=== PATIENT | male | born 1965 | race Caucasian/White ===

== ENCOUNTER 2019-05-16 19:43 | Emergency (ER) | payer OTHER ==
[2019-05-16 19:56] VITALS: BP 138/91; PULSE 88; RESP 18; TEMP 98.2
--- NOTE | 2019-05-16 20:48 | ED ---
Lower Extremity Injury HPI - General Chief Complaint: Extremity Injury, Lower Stated Complaint: Leg injury Time Seen by Provider: 05/16/19 20:08 Source: patient, RN notes reviewed, old records reviewed Mode of arrival: ambulatory Limitations: no limitations - History of Present Illness Initial Comments: This is a 53-year-old male presents emergency department today with strain over his left posterior thigh. Patient reports he was at work and felt a pop in his leg. Patient states that he has some cramping pain. He has not had any Motrin. - Related Data Home Medications Medication Instructions Recorded Confirmed Glimepiride [Amaryl] 4 mg PO BID 03/28/16 05/12/16 Levothyroxine Sodium [Unithroid] 150 mcg PO DAILY 03/28/16 05/12/16 Lisinopril [Zestril] 10 mg PO DAILY 03/28/16 05/12/16 Pioglitazone [Actos] 45 mg PO DAILY 03/28/16 05/12/16 metFORMIN HCL [metFORMIN HCL ER] 1,000 mg PO BID 03/28/16 05/12/16 traMADol HCL [Ultram] 50 mg PO Q6HR PRN 05/05/16 05/12/16 Previous Rx's Medication Instructions Recorded Ibuprofen [Motrin] 600 mg PO Q6HR PRN #40 day 03/28/16 Cephalexin [Keflex] 500 mg PO Q8HR #15 cap 05/12/16 HYDROcodone/APAP 5-325MG [[place] 1 - 2 each PO Q4-6H PRN #60 tab 05/12/16 5-325] Metoprolol Tartrate [Lopressor] 12.5 mg PO BID #60 tab 05/12/16 Sennosides-Docusate Sodium 2 tab PO DAILY #30 tablet 05/12/16 [Senokot-S] Allergies Allergy/AdvReac Type Severity Reaction Status Date / Time No Known Allergies Allergy Verified 05/16/19 19:56 Review of Systems ROS Statement: Those systems with pertinent positive or pertinent negative responses have been documented in the HPI. ROS Other: All systems not noted in ROS Statement are negative. Past Medical History Past Medical History: Diabetes Mellitus, Hypertension, Thyroid Disorder Additional Past Medical History / Comment(s): NIDDM type II, inactive thyroid. History of Any Multi-Drug Resistant Organisms: None Reported Past Surgical History: No Surgical Hx Reported, Orthopedic Surgery Additional Past Surgical History / Comment(s): 05/11/16 R rotator cuff repair. Other surgical hx: WISDOM TEETH EXTRACTION Past Anesthesia/Blood Transfusion Reactions: No Reported Reaction Past Psychological History: No Psychological Hx Reported Smoking Status: Never smoker Past Alcohol Use History: Rare Past Drug Use History: None Reported - Past Family History Mother Family Medical History: Cancer Additional Family Medical History / Comment(s): Mother at the age of 77yrs of some type of cancer. Father Family Medical History: No Reported History General Exam - General Exam Comments Initial Comments: Pleasant 33-year-old male. No distress. Limitations: no limitations General appearance: alert, in no apparent distress Head exam: Present: atraumatic, normocephalic, normal inspection Eye exam: Present: normal appearance, PERRL, EOMI. Absent: scleral icterus, conjunctival injection, periorbital swelling ENT exam: Present: normal exam, mucous membranes moist Neck exam: Present: normal inspection. Absent: tenderness, meningismus, lymphadenopathy Respiratory exam: Present: normal lung sounds bilaterally. Absent: respiratory distress, wheezes, rales, rhonchi, stridor Cardiovascular Exam: Present: regular rate, normal rhythm, normal heart sounds. Absent: systolic murmur, diastolic murmur, rubs, gallop, clicks GI/Abdominal exam: Present: soft, normal bowel sounds. Absent: distended, tenderness, guarding, rebound, rigid Extremities exam: Present: normal inspection, full ROM, normal capillary refill, other (Chest tenderness over the left posterior calf. Full range of motion noted. No palpable cord. No swelling or erythema.). Absent: tenderness, pedal edema, joint swelling, calf tenderness Back exam: Present: normal inspection Neurological exam: Present: alert, oriented X3, CN II-XII intact Psychiatric exam: Present: normal affect, normal mood Skin exam: Present: warm, dry, intact, normal color. Absent: rash Course Vital Signs 05/16/19 19:54 Temperature 98.2 F Pulse Rate 88 Respiratory 18 Rate Blood Pressure 138/91 O2 Sat by Pulse 98 Oximetry Medical Decision Making - Medical Decision Making Patient's a 53-year-old presented today for a left hamstring strain at work. Was moving material felt to stretched and pull in his left posterior thigh. This time he has no sign of tendon attachment full range of motion of the knee and leg noted. He has no other symptoms at this time. Patient was advised to take anti-inflammatory medication and ice the back of the leg. Discussed he can follow-up with [facility] over his [facility] Dr. symptoms continue to persist. Discussed could be. Reports muscles completely healed. Patient is agreeable to treatment plan will comply. Return parameters were discussed. Disposition Clinical Impression: Muscle strain, lower leg Disposition: HOME SELF-CARE Condition: Good Instructions (If sedation given, give patient instructions): Muscle Cramp (ED) Additional Instructions: Patient advised to follow-up with your primary care physician Nabor Pizano, stretch the leg before doing any activity. Patient can ice the leg from off-and-on for the next few days. Is patient prescribed a controlled substance at d/c from ED?: No Referrals: None,Stated [Primary Care Provider] - 1-2 days Time of Disposition: 20:48
[2019-05-16] MEDS ORDERED: IBUPROFEN 600 MG STARTER PACK 4 TAB BTL PO STA (20:50)
== END 2019-05-16 21:10 | disposition home or self-care (01) ==
LOC: EC 19:43
DX: S86.912A Strain of unspecified muscle(s) and tendon(s) at lower leg level, left leg, initial encounter (principal); E11.9 Type 2 diabetes mellitus without complications; I10 Essential (primary) hypertension; E07.89 Other specified disorders of thyroid; Z79.84 Long term (current) use of oral hypoglycemic drugs; Z79.890 Hormone replacement therapy; Z79.899 Other long term (current) drug therapy; X50.1XXA Overexertion from prolonged static or awkward postures, initial encounter; Y93.89 Activity, other specified; Y92.69 Other specified industrial and construction area as the place of occurrence of the external cause; Y99.0 Civilian activity done for income or pay
CPT/HCPCS: 99283

== ENCOUNTER → 2022-03-17 | Outpatient (CLI) | payer OTHER ==
--- NOTE | 2022-03-17 17:25 | XR ---
EXAMINATION TYPE: XR shoulder complete LT DATE OF EXAM: 03/17/2022 COMPARISON: NONE HISTORY: Pain TECHNIQUE: Shoulder examined in 3 projections FINDINGS: The humeral head articulates with the glenoid. The acromio-clavicular junction is normal. No acute fractures or dislocations are evident. A follow up study can be performed 7-10 days from acute trauma for continued pain. IMPRESSION: 1. No acute osseous abnormality left shoulder.
== END | disposition home or self-care (01) ==
LOC: RADXRMAIN 16:53
PROVIDERS: ATTEND Emergency Medicine
DX: S49.92XA Unspecified injury of left shoulder and upper arm, initial encounter (principal); M25.512 Pain in left shoulder

== ENCOUNTER → 2022-04-16 | Outpatient (CLI) | payer OTHER ==
--- NOTE | 2022-04-17 02:27 | MR ---
EXAMINATION TYPE: MR shoulder LT wo con DATE OF EXAM: 04/16/2022 COMPARISON: None HISTORY: Left shoulder pain and limited movement for 6 months. Multiplanar multi echo imaging of the left shoulder without contrast. The biceps tendon is intact. Subscapularis tendon is intact. Glenoid thomas appear normal. There is minor spurring at the AC joint and minimal subacromial impingement. The supraspinatus tendon is intact. No evidence of any significant shoulder joint effusion. The infraspinatus tendon is intac t. No evidence of a fracture. Glenoid appears normal. IMPRESSION: No evidence of rotator cuff tear. There is mild spurring at the AC joint with minimal subacromial imp ingement.
== END | disposition home or self-care (01) ==
LOC: RADMRIMAIN 18:45
PROVIDERS: ATTEND Orthopaedic Surgery
DX: M19.012 Primary osteoarthritis, left shoulder (principal)

== ENCOUNTER → 2022-07-14 | Outpatient (CLI) | payer SELFPAY ==
[2022-07-14 23:51] LABS: Basophils # (A) 0.07 X 10*3/uL (0.00-0.10); Basophils % (A) 0.9 %; Eosinophils # (A) 0.58 X 10*3/uL (0.04-0.35); Eosinophils % (A) 7.1 %; HCT 42.2 % (39.6-50.0); HGB 14.2 g/dL (13.0-17.0); Immature Grans, Automated 0.4 %; Lymphocytes # (A) 1.73 X 10*3/uL (0.90-5.00); Lymphocytes % (A) 21.2 %; MCH 32.6 pg (27.0-32.0); MCHC 33.6 g/dL (32.0-37.0); MCV 96.8 fL (80.0-97.0); Mean Platelet Volume 11.7 fL (9.5-12.2); Monocytes # (A) 0.67 X 10*3/uL (0.20-1.00); Monocytes % (A) 8.2 %; NRBC Per 100 WBC 0 /100 WBCS (0.0-0.0); Neutrophils # (A) 5.08 X 10*3/uL (1.80-7.70); Neutrophils % (A) 62.2 %; Platelet Count 231 X 10*3/uL (140-440); RBC 4.36 X 10*6/uL (4.40-5.60); RDW 12.6 % (11.5-14.5); WBC 8.16 X 10*3/uL (4.50-10.00)
[2022-07-15 00:06] LABS: African American GFR (CKD) 114.1 (60.0-200.0); Anion Gap 12.4 mmol/L (10.00-18.00); BUN/Creat Ratio 21.13 Ratio (12.00-20.00); Blood Urea Nitrogen 16.9 mg/dL (9.0-27.0); Carbon Dioxide 25.6 mmol/L (20.0-27.5); Non-African American GFR(CKD) 98.5 (60.0-200.0); Potassium 4.9 mmol/L (3.5-5.5)
== END | disposition home or self-care (01) ==
LOC: LABPAT 15:55
PROVIDERS: ATTEND Orthopaedic Surgery
DX: Z01.812 Encounter for preprocedural laboratory examination (principal); M75.42 Impingement syndrome of left shoulder
CPT/HCPCS: 80048; 85025

== ENCOUNTER 2022-07-30 06:57 | Day surgery (SDC) | payer OTHER ==
[2022-07-28 15:49] VITALS: BMI 30.7
--- NOTE | 2022-07-29 11:16 | P.HPOR ---
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 He was doing heavy lifting overhead. He notes persistent pain with overhead use and at night ever since. He tried conservative measures without much relief. Review of Systems As per HPI Past Medical History Past Medical History: Diabetes Mellitus, Hypertension, Thyroid Disorder Additional Past Medical History / Comment(s): inactive thyroid, on antibiotics for preventative for "Hook in finger" History of Any Multi-Drug Resistant Organisms: None Reported Past Surgical History: Orthopedic Surgery Additional Past Surgical History / Comment(s): R rotator cuff repair. WISDOM TEETH EXTRACTION Past Anesthesia/Blood Transfusion Reactions: No Reported Reaction Smoking Status: Never smoker - Past Family History Mother Family Medical History: CVA/TIA Additional Family Medical History / Comment(s): . Father Family Medical History: No Reported History Medications and Allergies Home Medications Medication Instructions Recorded Confirmed Type Glimepiride [Amaryl] 4 mg PO BID 03/28/16 07/28/22 History Levothyroxine Sodium [Unithroid] 150 mcg PO DAILY 03/28/16 07/28/22 History Pioglitazone [Actos] 45 mg PO DAILY 03/28/16 07/28/22 History lisinopriL [Zestril] 10 mg PO DAILY 03/28/16 07/28/22 History metFORMIN HCL [metFORMIN HCL ER] 1,000 mg PO BID 03/28/16 07/28/22 History Amoxic-Pot Clav 875-125Mg 1 tab PO Q12HR 07/28/22 07/28/22 History [Augmentin 875-125] Atorvastatin [Lipitor] 10 mg PO DAILY 07/28/22 07/28/22 History Dulaglutide [Trulicity] 3 mg SQ SA 07/28/22 07/28/22 History Metoprolol Succinate [Metoprolol 25 mg PO BID 07/28/22 07/28/22 History Succinate ER] Multivitamins, Thera [Multivitamin 1 tab PO DAILY 07/28/22 07/28/22 History (formulary)] Ubidecarenone [Co Q-10] 200 mg PO DAILY 07/28/22 07/28/22 History Allergies Allergy/AdvReac Type Severity Reaction Status Date / Time No Known Allergies Allergy Verified 07/28/22 15:35 Physical Examination - Shoulder left Tenderness with palpation: anterior Pain: with abduction, with forward flexion ROM: abduction: 60 degrees ROM: forward flexion: 80 degrees (With pain, passive forward elevation 80) ROM: internal rotation: lower lumbar ROM: external rotation: 10 degrees Strength: abduction: 4/5 Strength: external rotation: 4/5 Tests: internal impingement tests: positive Results The patient is a well-developed well-nourished male, approximate 5 foot 11, 225 pounds of endomorphic habitus. HEENT exam is nonfocal, neck is supple. His distal neurovascular appears intact in the left upper extremity. - Diagnostic results Shoulder MRI: image reviewed (Left shoulder MRI shows evidence of significant shoulder synovitis. There is some increased signal involving the rotator cuff however no aadlid full thickness tear.) Knee MRI: image reviewed Assessment and Plan Assessment: Left shoulder synovitis/adhesive capsulitis Left shoulder impingement/rotator cuff tendinitis Plan: I talked to the patient at length regarding his condition along with treatment options. At this point he is quite symptomatic and opts to proceed with surgical intervention. We'll plan to proceed with arthroscopic evaluation with probable synovectomy, possible manipulation under anesthesia, in addition to possible subacromial decompression. Time with Patient: Less than 30
[~2022-07-30 06:57] MED LIST: DEXAMETHASONE SOD PHOSPHATE 4 MG/ML 1 ML VIAL IV ONE; LACTATED RINGERS 1,000 ML IV SCH; MIDAZOLAM 2 MG/2 ML VIAL IV PRN; ONDANSETRON 4 MG/2 ML VIAL IVP ONE; SCOPOLAMINE 1 MG/72 HR PATCH TRANSDERM ONE
[2022-07-30 08:04] LABS: Glucose,Whole Blood 135 mg/dL (70-110)
[2022-07-30] MEDS ORDERED: MIDAZOLAM 2 MG/2 ML VIAL IVP ONE (09:00)
[2022-07-30] MEDS ORDERED: ROPIVACAINE 5 MG/ML 30 ML VIAL ONE (09:40)
[2022-07-30] MEDS ORDERED: LIDOCAINE 2% INJ 20 MG/ML (2 ML VIAL) ONE (09:40)
[2022-07-30] MEDS ORDERED: MIDAZOLAM 2 MG/2 ML VIAL ONE (09:40)
[2022-07-30] MEDS ORDERED: PROPOFOL 10 MG/ML 20 ML VIAL IV ONE (09:40)
[2022-07-30] MEDS ORDERED: fentaNYL (PF) 50 MCG/ML 2 ML AMP ONE (09:40)
[2022-07-30] MEDS ORDERED: EPINEPHrine (PF) 1 ML in SODIUM CHLORIDE 0.9% IRRIGATIO 3,000 ML IRRIGATION ONE ×8 (09:47)
--- NOTE | 2022-07-30 09:58 | P.ANPRN ---
Procedure Note - Anesthesia - Nerve Block Performed Left Interscalene Time Out Performed: Yes (08:59) Date of Procedure: 07/30/22 Procedure Start Time: 59 Procedure Stop Time: :07 Location of Patient: PreOp Indication: Acute Post-Operative Pain, Requested by Surgeon (Dr Pack) Sedation Type: Sedate with meaningful contact maintained Preparation: Sterile Prep Position: Supine Catheter: None Needle Types: Pajunk Needle Gauge: Other (see comment) (22g) Ultrasound used to visualize needle placement: Yes Ultrasound used to observe medication spread: Yes Injectate: 0.5% Ropivacaine (see comment for volume) (20cc) Blood Aspirated: No Pain Paresthesia on Injection Noted: No Resistance on Injection: Normal Image Stored and Saved: Yes Events: Uneventful and Well Tolerated
--- NOTE | 2022-07-30 10:51 | P.OP ---
Date of Procedure: 07/30/22 Preoperative Diagnosis: Left shoulder adhesive capsulitis Left rotator cuff tendinitis/impingement/bursitis/synovitis Postoperative Diagnosis: Same in addition to high-grade partial-thickness tear intra-articular portion long head of the biceps Procedure(s) Performed: Left shoulder manipulation under anesthesia/arthroscopic subacromial decompression/synovectomy left shoulder/biceps tenotomy Anesthesia: ritu YAP Surgeon: Fito Pack Plant Maintenance Engineer #1: Casimiro Bradford Estimated Blood Loss (ml): 10 Pathology: none sent Condition: stable Disposition: PACU Indications for Procedure: The patient is a 56-year-old male who presents with progressive left shoulder pain after an injury at work despite conservative measures. A discussion of the risks and benefits of operative intervention versus continued conservative measures was made with patient. He opted to proceed with surgery. Operative risks to include infection, neurovascular injury, development of blood clots, possible recurrence of stiffness, possible need for subsequent procedures was discussed. Informed consent was obtained. Operative Findings: As below Description of Procedure: The patient was brought to the operating room, and after induction of general anesthesia was placed in a beachchair position. A preoperative interscalene block was placed for postoperative analgesia. I examined the left shoulder. There was significant block to passive motion. Gentle manipulation was performed first with the arm at side obtaining full external rotation. Moderate adhesions were encountered. I then obtained full forward elevation. Again moderate adhesions were encountered. The left upper extremity was prepped and draped in normal fashion. The bony outlines the acromion, distal clavicle, and coracoid process were outlined with a skin marker. The glenohumeral joint was inflated with 50 mL of saline utilizing a spinal needle from posterior approach. A posterior portal was made through a 5 mm skin incision 1 cm medial and inferior to the posterior lateral border time. A blunt trocar was used to easily into the joint. Diagnostic arthroscopy was performed. An anterior portal was made just lateral to the coracoid process entering the joint above the subscapularis tendon. Significant synovitis was noted particular involving the rotator interval. This was debrided with motorized shaver. The subscapularis tendon appeared to be intact. Anterior labrum was intact. The inferior recess was inspected. The posterior labrum was intact. There was a high-grade partial-thickness tear of the long head of the biceps involving interarticular portion. It was elected to proceed with release at this point. This was released from the superior labrum with electrocautery and was allowed to retract to the bicipital groove. On inspection the rotator cuff made was intact on the articular surface. The arthroscope was placed into the subacromial space. A lateral portal was made 2 centimeters inferior to the anterior lateral border of the acromion. Significant bursal thickening was noted and was debrided with motorized shaver. The soft tissue on the undersurface of the acromion was debrided with a motorized shaver and electrocautery clearly defining the anterior medial and lateral borders as well as the distal clavicle. An anterior inferior acromioplasty was performed with a motorized olga starting anterolateral, then extending this posteriorly, then extending this medially. I converted to a flat acromion and this was verified in the posterior and lateral viewing portals. The rotator cuff appeared to be intact on the bursal surface. The arthroscope was then removed. The portals were closed with simple 3-0 nylon sutures. A sterile dressing was applied in addition to a sling. The patient was then awoken from general anesthesia and transferred to recovery room in good condition. Blood loss was estimated at 10 mL. No complications were incurred. Sponge and needle counts were correct in the case. Alexander URBAN assisted and the major components of the case to include arm positioning, along with decompression/synovectomy.
[2022-07-30 11:06] VITALS: TEMP 97
[2022-07-30 11:09] LABS: Glucose,Whole Blood 185 mg/dL (70-110)
[2022-07-30] MEDS: HYDROmorphone 0.5 MG/0.5 ML SYRINGE IVP PRN ×3 (11:12→11:48)
[2022-07-30] MEDS ORDERED: KETOROLAC 15 MG/ML 1 ML VIAL IVP ONE (11:32)
[2022-07-30] MEDS ORDERED: HYDROcodone/APAP 7.5-325MG 1 EACH TAB ONE (12:38)
[2022-07-30] MEDS ORDERED: HYDROcodone/APAP 7.5-325MG 1 EACH TAB PO ONE (12:40)
[2022-07-30 12:45] VITALS: BP 125/74; RESP 20
[2022-07-30 13:27] VITALS: PULSE 90
== END 2022-07-30 13:31 | disposition home or self-care (01) ==
LOC: OR 06:57
PROVIDERS: ATTEND Orthopaedic Surgery
DX: M75.42 Impingement syndrome of left shoulder (principal); G89.18 Other acute postprocedural pain; I10 Essential (primary) hypertension; E07.9 Disorder of thyroid, unspecified; E11.9 Type 2 diabetes mellitus without complications; M75.02 Adhesive capsulitis of left shoulder; Z79.84 Long term (current) use of oral hypoglycemic drugs
CPT/HCPCS: 64415; 76942; 29828; 29826; J2250; J1100; J0690; J2405; J0171; J3010; J2795; J1885; J2704; J1170; J2001

== ENCOUNTER 2022-11-30 08:44 | Day surgery (SDC) | payer OTHER ==
[2022-11-24 09:48] VITALS: BMI 32.1
--- NOTE | 2022-11-29 08:17 | P.HPOR ---
History of Present Illness H&P Date: 11/29/22 Chief Complaint: Left shoulder stiffness/pain The patient is a 57-year-old male who presents with persistent left shoulder stiffness and pain after undergoing previous left shoulder arthroscopy despite adequate rehabilitation. He notes difficulties with overhead activity and at night. He's been working on daily stretching exercises. Review of Systems As per HPI Past Medical History Past Medical History: Diabetes Mellitus, Hypertension, Thyroid Disorder Additional Past Medical History / Comment(s): Diabetes type II, inactive thyroid., heart murmur., frozen left shoulder. History of Any Multi-Drug Resistant Organisms: None Reported Past Surgical History: Orthopedic Surgery Additional Past Surgical History / Comment(s): 05/11/16 R rotator cuff repair. , left shoulder surgery (07/2022) Past Anesthesia/Blood Transfusion Reactions: No Reported Reaction Past Psychological History: No Psychological Hx Reported Additional Psychological History / Comment(s): . Smoking Status: Never smoker Past Alcohol Use History: Rare Past Drug Use History: None Reported - Past Family History Mother Family Medical History: No Reported History Additional Family Medical History / Comment(s): . Father Family Medical History: No Reported History Medications and Allergies Home Medications Medication Instructions Recorded Confirmed Type Glimepiride [Amaryl] 4 mg PO BID 03/28/16 11/24/22 History Levothyroxine Sodium [Unithroid] 150 mcg PO DAILY 03/28/16 11/24/22 History Pioglitazone [Actos] 45 mg PO DAILY 03/28/16 11/24/22 History lisinopriL [Zestril] 10 mg PO DAILY 03/28/16 11/24/22 History metFORMIN HCL [metFORMIN HCL ER] 1,000 mg PO BID 03/28/16 11/24/22 History Atorvastatin [Lipitor] 10 mg PO DAILY 07/28/22 11/24/22 History Metoprolol Succinate [Metoprolol 25 mg PO BID 07/28/22 11/24/22 History Succinate ER] Ubidecarenone [Co Q-10] 200 mg PO DAILY 07/28/22 11/24/22 History Dulaglutide [Trulicity] 1.5 mg SQ SA 11/24/22 11/24/22 History Multivit-Min/FA/Lycopen/Lutein 1 each PO DAILY 11/24/22 11/24/22 History [Centrum Silver Tablet] Allergies Allergy/AdvReac Type Severity Reaction Status Date / Time No Known Allergies Allergy Verified 11/24/22 09:20 Physical Examination - Shoulder left Tenderness with palpation: anterior Pain: with forward flexion ROM: abduction: 80 degrees ROM: forward flexion: 80 degrees ROM: external rotation: 30 degrees Strength: abduction: 5/5 Strength: forward flexion: 5/5 Results The patient is a well-developed well nourished male approximately 5 foot 11/225 pounds. HEENT exam is nonfocal, neck is supple. His distal neurovascular exam appears intact to the left upper extremity. Passive and active range of motion are symmetric. Assessment and Plan Assessment: Status left shoulder arthroscopy/recurrent recurrent adhesive capsulitis [id number] diabetes Plan: I talked to the patient at length regarding his condition along with treatment options. At this point remains quite stiff despite adequate rehabilitation. After thorough discussion he opted to proceed with manipulation under anesthesia. We will perform that as an outpatient procedure. Risks and benefits were discussed at length in layman's terms.
[~2022-11-30 08:44] MED LIST changes: -DEXAMETHASONE SOD PHOSPHATE 4 MG/ML 1 ML VIAL IV ONE; +LIDOCAINE 1% (10MG/ML) FOR IV START INTRADERMA PRN; -MIDAZOLAM 2 MG/2 ML VIAL IV PRN; -SCOPOLAMINE 1 MG/72 HR PATCH TRANSDERM ONE
[2022-11-30 09:11] VITALS: TEMP 97
[2022-11-30 09:24] LABS: Glucose,Whole Blood 188 mg/dL (70-110)
[2022-11-30] MEDS ORDERED: KETOROLAC 15 MG/ML 1 ML VIAL ONE (10:00)
[2022-11-30] MEDS ORDERED: PROPOFOL 10 MG/ML 20 ML VIAL IV ONE (10:00)
[2022-11-30] MEDS ORDERED: LIDOCAINE 2% INJ 20 MG/ML (2 ML VIAL) ONE (10:00)
--- NOTE | 2022-11-30 10:17 | P.OP ---
Date of Procedure: 11/30/22 Preoperative Diagnosis: Left shoulder adhesive capsulitis Postoperative Diagnosis: Same Procedure(s) Performed: Manipulation under anesthesia left shoulder Anesthesia: MAC Surgeon: Fito Pack Estimated Blood Loss (ml): 0 Pathology: none sent Condition: stable Disposition: PACU Indications for Procedure: The patient is a 57 year old male who previously underwent left shoulder arthroscopy who presents with persistent stiffness/adhesive capsulitis despite conservative measures. A discussion of the risks and benefits of operative intervention versus continued conservative measures was made with patient. He opted to proceed. Operative risks to include fracture, tendon rupture, possible recurrence of stiffness and need for subsequent procedures was discussed. Informed consent was obtained. Operative Findings: As below Description of Procedure: The patient was brought to the recovery room, and after induction of IV sedation the left shoulder was then gently manipulated. First with his arm at his side, I obtained full external rotation. Moderate adhesions were encountered. I then obtained full forward elevation. Again moderate adhesions were encountered. I felt that I had adequate release at this point. He was then monitored until fully awake. No complications were incurred. There was no blood loss.
[2022-11-30] MEDS: HYDROmorphone 0.5 MG/0.5 ML SYRINGE IVP PRN ×4 (10:24→10:44)
[2022-11-30 10:31] VITALS: RESP 16
[2022-11-30 11:45] VITALS: BP 134/79; PULSE 93
== END 2022-11-30 12:20 | disposition home or self-care (01) ==
LOC: OR 08:44
PROVIDERS: ATTEND Orthopaedic Surgery
DX: M75.02 Adhesive capsulitis of left shoulder (principal); E11.9 Type 2 diabetes mellitus without complications; I10 Essential (primary) hypertension; E07.9 Disorder of thyroid, unspecified; F10.90 Alcohol use, unspecified, uncomplicated; Z98.890 Other specified postprocedural states; Z79.899 Other long term (current) drug therapy; Z79.890 Hormone replacement therapy; Z79.84 Long term (current) use of oral hypoglycemic drugs
CPT/HCPCS: 23700; J1885; J2704; J1170; J2001